=== PATIENT | male | born 1940 | race Caucasian/White ===

== ENCOUNTER 2024-10-28 23:39 | Inpatient (IN) | payer MEDICARE ==
[~2024-10-28] VITALS: Ht 185.4 cm; Wt 89.3 kg
[2024-10-29] MEDS ORDERED: Ondansetron HCl 2 MG / ML 2ML Vial IV PRN ×2 (00:20→04:25)
[2024-10-29 00:33] LABS: BASOPHILS ABSOLUTE AUTO 0.04 K/mm3 (0.00-0.23); BASOPHILS PERCENT AUTO 0 % (0-2); EOSINOPHILS ABSOLUTE AUTO 0.09 K/mm3 (0.00-0.68); EOSINOPHILS PERCENT AUTO 1 % (0-6); Hematocrit 45.9 % (37.0-53.0); Hemoglobin 15.5 g/dL (13.5-17.5); IMMATURE GRAN ABSOLUTE AUTO 0.04 K/mm3 (0.00-0.10); IMMATURE GRAN PERCENT AUTO 0 % (0-1); LYMPHOCYTES ABSOLUTE AUTO 1.01 K/mm3 (0.84-5.20); LYMPHOCYTES PERCENT AUTO 8 % (21-46); MONOCYTES ABSOLUTE AUTO 0.77 K/mm3 (0.16-1.47); MONOCYTES PERCENT AUTO 6 % (4-13); Mean Corpuscular HGB 33.2 pg (26.0-34.0); Mean Corpuscular HGB Conc 33.8 g/dL (31.5-36.5); Mean Corpuscular Volume 98 fL (80-100); Mean Platelet Volume 10.6 fL (9.1-12.4); NEUTROPHILS ABSOLUTE AUTO 11.57 K/mm3 (1.96-9.15); NEUTROPHILS PERCENT AUTO 86 % (41-73); Platelet Count 219 K/mm3 (150-400); RDW Coefficient Variation 12.3 % (11.7-14.2); RDW Standard Deviation 44.6 fL (35.1-46.3); Red Blood Cell Count 4.67 M/mm3 (4.30-5.90); White Blood Cell Count 13.52 K/mm3 (4.00-11.30)
[2024-10-29 01:09] LABS: Alanine Aminotransfer (ALT/SGP 31 U/L (12-78); Albumin, Blood 3.5 g/dL (3.4-5.0); Albumin/Globulin Ratio 1.1 (0.8-1.8); Alk Phos 56 U/L (50-136); Anion Gap 8 mmol/L (3-11); Aspartate Aminotrans (AST/SGOT 21 U/L (12-37); Bilirubin, Total 0.3 mg/dL (0.1-1.0); Blood Urea Nitrogen 22 mg/dL (8-24); Bun/Creatinine Ratio 21.8 (12.0-20.0); CO2, Blood 27 mmol/L (21-32); Calcium, Blood 9.1 mg/dL (8.5-10.1); Chloride, Blood 110 mmol/L (98-108); Creatinine, Blood 1.01 mg/dL (0.60-1.20); Globulin, Blood 3.2 g/dL (2.2-4.0); Glomerular Filtration Rate 73 (60-); Glucose, Blood 146 mg/dL (70-99); Sodium, Blood 141 mmol/L (136-145); Total Protein, Blood 6.7 g/dL (6.4-8.2)
[2024-10-29] MEDS ORDERED: Lactated Ringer's 1,000 ML IV SCH ×2 (02:20→04:10)
[2024-10-29] MEDS ORDERED: FentaNYL Citrate 50 MCG/ML 2 ML Injection IV ONE ×2 (02:20→03:10)
[2024-10-29] MEDS ORDERED: ELIQUIS5 M3 PO (04:01)
[2024-10-29] MEDS ORDERED: METOPROLOL SUCC25 MG PO (04:01)
[2024-10-29] MEDS ORDERED: FentaNYL Citrate 50 MCG/ML 2 ML Injection IV PRN ×3 (04:05→11:10)
[2024-10-29] MEDS ORDERED: NS 1,000 ML IV ONE (04:25)
[2024-10-29] MEDS ORDERED: FLU VACC TS2024-25(6MOS UP)/PF 45 MCG/0.5 ML SYRINGE IM ONE (04:25)
[2024-10-29 05:11] LABS: LDL/HDL RATIO 2.7; Very Low Density Lipoprot Chol 44 mg/dL (6-32)
[2024-10-29 05:12] LABS: Cholesterol 165 mg/dL (50-200); HDL Cholesterol 33 mg/dL (>39); Low Density Lipoprotein Chol 88 mg/dL (0-110); Triglycerides 220 mg/dL (30-160)
[2024-10-29 05:23] LABS: BASOPHILS ABSOLUTE AUTO 0.02 K/mm3 (0.00-0.23); BASOPHILS PERCENT AUTO 0 % (0-2); EOSINOPHILS ABSOLUTE AUTO 0.01 K/mm3 (0.00-0.68); EOSINOPHILS PERCENT AUTO 0 % (0-6); Hematocrit 42.9 % (37.0-53.0); Hemoglobin 14.6 g/dL (13.5-17.5); IMMATURE GRAN ABSOLUTE AUTO 0.06 K/mm3 (0.00-0.10); IMMATURE GRAN PERCENT AUTO 1 % (0-1); LYMPHOCYTES ABSOLUTE AUTO 0.47 K/mm3 (0.84-5.20); LYMPHOCYTES PERCENT AUTO 4 % (21-46); MONOCYTES ABSOLUTE AUTO 0.55 K/mm3 (0.16-1.47); MONOCYTES PERCENT AUTO 5 % (4-13); Mean Corpuscular HGB 33.4 pg (26.0-34.0); Mean Corpuscular Volume 98 fL (80-100); Mean Platelet Volume 10.7 fL (9.1-12.4); NEUTROPHILS ABSOLUTE AUTO 10.78 K/mm3 (1.96-9.15); NEUTROPHILS PERCENT AUTO 91 % (41-73); Platelet Count 211 K/mm3 (150-400); RDW Coefficient Variation 12.2 % (11.7-14.2); RDW Standard Deviation 44.4 fL (35.1-46.3); Red Blood Cell Count 4.37 M/mm3 (4.30-5.90); White Blood Cell Count 11.89 K/mm3 (4.00-11.30)
[2024-10-29 05:44] LABS: Albumin, Blood 3.2 g/dL (3.4-5.0); Albumin/Globulin Ratio 1.1 (0.8-1.8); Bilirubin, Total 0.6 mg/dL (0.1-1.0); Bun/Creatinine Ratio 20.8 (12.0-20.0); Calcium, Blood 8.8 mg/dL (8.5-10.1); Creatinine, Blood 0.91 mg/dL (0.60-1.20); Globulin, Blood 2.9 g/dL (2.2-4.0); Potassium, Blood 4.2 mmol/L (3.5-5.5); Total Protein, Blood 6.1 g/dL (6.4-8.2)
[2024-10-29 06:25] VITALS: BP 128/83
--- NOTE | 2024-10-29 07:01 | NUR ---
ADMIT NOTE/SHIFT SUMMARY REPORT RECEIVED FROM ER AT 0621 PT WAS BROUGHT DOWN VIA W/C AND TRANSFERRED TO ROOM 363. PT ALERT ORIENTED X 4 CALLS APPROPRIATELY C/O ABD PAIN MEDICATED WITH FENTANYL DOWN IN THE ER. PT WAS ORIENTED TO ROOM AND STAFF. HE WAS STARTED ON TELEMETRY AT [facility] AT A RATE OF 73. REMAINS NPO VSS ON RA NO C/O N/V RESTING IN BED AT THIS TIME WITH CALL LIGHT IN REACH
[2024-10-29] MEDS ORDERED: Enoxaparin 40 MG/0.4 ML SYR SC SCH (09:00)
[2024-10-29] MEDS ORDERED: Metoprolol Succinate 25 MG TABCR PO SCH (09:00)
[2024-10-29] MEDS ORDERED: Apixaban 5 MG Tab PO SCH (09:00)
[2024-10-29] MEDS ORDERED: Enoxaparin 100 MG/ML 1ML SYR SC SCH (09:00)
[2024-10-29] MEDS ORDERED: Acetaminophen 325 MG TABLET PO PRN (11:10)
[2024-10-29] MEDS ORDERED: Ketorolac Tromethamine 15mg Vial IV PRN (11:20)
[2024-10-29 15:21] VITALS: BP 102/74
--- NOTE | 2024-10-29 18:25 | NUR ---
SHIFT SUMMARY PT A&OX4 AND ANSWERS QUESTIONS APPROPRIATELY. PT RECEIVED SCHEDULED AND PRN MEDICATIONS. LR RUNNING @ 200ML/HR X2 BAGS. VSS, NO COMPLAINTS OF CP/PRESSURE OR SOB. PT VERBALIZES LOW LEVELS OF PAIN DURING DAY AND ONLY NEEDED TYLENOL X1 TODAY. PT INDEPENDENT IN ROOM, FALL PRECAUTIONS IN PLACE. PT REPOSITIONED INDEPENDENTLY. NO ACUTE EVENTS AT THIS TIME. CALL LIGHT IN REACH.
--- NOTE | 2024-10-29 18:36 | NUR ---
PT TOLERATED X2 ICE CREAM CUP, JELLO, AND SOME PUDDING. TOLERATING PO INTAKE WITHOUT N/V
[2024-10-29 19:39] VITALS: BP 97/73
[2024-10-30 04:45] VITALS: BP 106/57
[2024-10-30 05:50] LABS: BASOPHILS ABSOLUTE AUTO 0.05 K/mm3 (0.00-0.23); BASOPHILS PERCENT AUTO 1 % (0-2); EOSINOPHILS ABSOLUTE AUTO 0.34 K/mm3 (0.00-0.68); EOSINOPHILS PERCENT AUTO 3 % (0-6); Hemoglobin 14.3 g/dL (13.5-17.5); IMMATURE GRAN ABSOLUTE AUTO 0.04 K/mm3 (0.00-0.10); IMMATURE GRAN PERCENT AUTO 0 % (0-1); LYMPHOCYTES ABSOLUTE AUTO 1.31 K/mm3 (0.84-5.20); LYMPHOCYTES PERCENT AUTO 13 % (21-46); MONOCYTES ABSOLUTE AUTO 0.86 K/mm3 (0.16-1.47); MONOCYTES PERCENT AUTO 9 % (4-13); Mean Corpuscular HGB 33.3 pg (26.0-34.0); Mean Corpuscular HGB Conc 33.3 g/dL (31.5-36.5); Mean Corpuscular Volume 100 fL (80-100); Mean Platelet Volume 11.3 fL (9.1-12.4); NEUTROPHILS ABSOLUTE AUTO 7.27 K/mm3 (1.96-9.15); NEUTROPHILS PERCENT AUTO 74 % (41-73); Platelet Count 197 K/mm3 (150-400); RDW Coefficient Variation 12.6 % (11.7-14.2); RDW Standard Deviation 46.5 fL (35.1-46.3); White Blood Cell Count 9.87 K/mm3 (4.00-11.30)
[2024-10-30 06:29] LABS: Calcium, Blood 8.9 mg/dL (8.5-10.1); Creatinine, Blood 0.87 mg/dL (0.60-1.20); Potassium, Blood 4.2 mmol/L (3.5-5.5)
--- NOTE | 2024-10-30 06:47 | NUR ---
SHIFT SUMMARY PT MEDICATED FOR ABDOMINAL PAIN X1 WITH TYLENOL- SEE EMAR. DENIES NAUSEA. TOLERATING LIQUID DIET. UP INDEPENDENTLY IN ROOM. TELE WITH AFIB, CONTROLLED RATE. SLEPT ON/OFF THROUGH THE NIGHT. CURRENTLY PT IS IN SHOWER.
[2024-10-30 07:22] VITALS: BP 106/73
--- NOTE | 2024-10-30 10:45 | NUR ---
DISCHARGE NOTE PT DISCHARGED HOME AT 1035. PT PROVIDED W/ VERBAL AND WRITTEN INSTRUCTIONS AND REPORTED UNDERSTANDING. PT A&OX4, VSS, AMB IND, TOLERATING PO, VOIDING, AND DENIED PAIN. BELONGINGS WERE RETURNED AND PT ESCOURTED DOWN TO PT ENTRANCE BY MITCHELL DIETZ.
== END 2024-10-30 10:41 | disposition home or self-care (01) | DRG 439 ==
LOC: ER 23:39 → MEDS 10-29 04:22 → ERHOLD 10-29 04:22 → MEDS 10-29 06:25 → ENPENDDIS 10-30 10:01 → MEDS 10-30 10:41
PROVIDERS: Emergency Medicine; ADMIT Internal Medicine
DX: K85.90 Acute pancreatitis without necrosis or infection, unspecified (principal); I48.20 Chronic atrial fibrillation, unspecified; I10 Essential (primary) hypertension; Z79.01 Long term (current) use of anticoagulants; Z79.899 Other long term (current) drug therapy; Z90.49 Acquired absence of other specified parts of digestive tract; Z98.890 Other specified postprocedural states
CPT/HCPCS: 36415; 74177; 76705; 80048; 80053; 80061; 83690; 83880; 85025; 96361; 96374; 99285; A9270; J3010; J7120; Q9967